=== PATIENT | female | born 1960 | race Caucasian/White ===

== ENCOUNTER 2018-01-20 15:14 | Observation (INO) | payer BC ==
[~2018-01-20] VITALS: Ht 172.7 cm; Wt 76.0 kg
[2018-01-20 15:15] VITALS: BP 158/74; PULSE 85; RESP 20; TEMP 98.2; O2SAT 100
[2018-01-20] MEDS ORDERED: VIBR100C PO (16:44)
[2018-01-20] MEDS ORDERED: HYDROmorphone HCL PF 2 MG/ML VIAL IV PUSH ONE (17:00)
--- NOTE | 2018-01-20 17:03 | PD ---
HPI Chief Complaint: Back/ Neck Pain or Injury Time Seen by Provider: 16:55 Travel History International Travel<30 days: No Contact w/Intl Traveler<30days: No Traveled to known affect area: No History of Present Illness HPI 57-year-old female here for evaluation of right lower back pain that radiates down her right leg. The pain started this morning. She went to see her primary care physician Dr. Simpson who prescribed her muscle relaxants. She then went to get a massage, and afterwards she states that she cannot dress herself. Pain is constant, severe, radiates down her right posterior leg, constant, worse with movements. No urinary or bowel incontinence or retention. No fevers. No known history of cancer. PFSH Past Medical History Medical History: Denies Significant Hx Tetanus Vaccination: < 5 Years ?: Not Past Surgical History Hysterectomy: Yes Other Surgery: Yes (lt kidney removed) Social History Alcohol Use: No Tobacco Use: No Substance Use: No Allergies-Medications (Allergen,Severity, Reaction): Coded Allergies: meperidine (Verified Allergy, Severe, Anaphylaxis, 01/20/18) morphine (Verified Allergy, Severe, Hives, 01/20/18) NSAIDS (Non-Steroidal Anti-Inflamma (Verified Adverse Reaction, Unknown, ) PER PCP, NO NSAIDS BECAUSE OF KIDNEY FUNCTION Uncoded Allergies: ivp dye (Allergy, Severe, Anaphylaxis, 01/20/18) steroids (Adverse Reaction, Severe, Confusion, 01/20/18) crazy Reported Meds & Prescriptions Reported Meds & Active Scripts Active Reported Vibramycin (Doxycycline Hyclate) 100 Mg Cap 100 Mg PO BID Review of Systems Except as stated in HPI: all other systems reviewed are Neg Physical Exam Narrative GENERAL: Well-developed, well-nourished, no apparent distress. SKIN: Focused skin assessment warm/dry. No rash. HEAD: Atraumatic. Normocephalic. EYES: Pupils equal and round. No scleral icterus. No injection or drainage. ENT: No nasal bleeding or discharge. Mucous membranes pink and moist. NECK: Trachea midline. No JVD. CARDIOVASCULAR: Regular rate and rhythm. No murmur appreciated. RESPIRATORY: No accessory muscle use. Clear to auscultation. Breath sounds equal bilaterally. GASTROINTESTINAL: Abdomen soft, non-tender, nondistended. MUSCULOSKELETAL: No obvious deformities. No clubbing. No cyanosis. No edema. Normal range of motion and muscle strength in bilateral lower extremities. No midline vertebral step-off or tenderness. NEUROLOGICAL: Awake and alert. No obvious cranial nerve deficits. Motor grossly within normal limits. Normal speech. No saddle anesthesia. Brisk patellar tendon reflexes bilaterally. Great toe extension present bilaterally. PSYCHIATRIC: Appropriate mood and affect; insight and judgment normal. Data Data Last Documented VS Vital Signs Date Time Temp Pulse Resp B/P (MAP) Pulse Ox O2 Delivery O2 Flow Rate FiO2 01/20/18 17:42 15 01/20/18 17:10 83 99 Room Air 01/20/18 15:15 98.2 Orders Orders Complete Blood Count With Diff (01/20/18 17:00) Comprehensive Metabolic Panel (01/20/18 17:00) Prothrombin Time / Inr (Pt) (01/20/18 17:00) Act Partial Throm Time (Ptt) (01/20/18 17:00) Urinalysis - C+S If Indicated (01/20/18 17:00) Iv Access Insert/Monitor (01/20/18 17:00) Ecg Monitoring (01/20/18 17:00) Oximetry (01/20/18 17:00) Sodium Chloride 0.9% Flush (Ns Flush) (01/20/18 17:00) Mri L Spine W/O Contrast (01/20/18 ) Hydromorphone Pf Inj (Dilaudid Pf Inj) (01/20/18 17:00) Ondansetron Inj (Zofran Inj) (01/20/18 18:30) Labs Laboratory Tests Test 01/20/18 17:07 White Blood Count 7.4 TH/MM3 Red Blood Count 3.79 MIL/MM3 Hemoglobin 13.1 GM/DL Hematocrit 36.9 % Mean Corpuscular Volume 97.4 FL Mean Corpuscular Hemoglobin 34.4 PG Mean Corpuscular Hemoglobin Concent 35.4 % Red Cell Distribution Width 12.8 % Platelet Count 205 TH/MM3 Mean Platelet Volume 7.9 FL Neutrophils (%) (Auto) 50.7 % Lymphocytes (%) (Auto) 39.1 % Monocytes (%) (Auto) 8.7 % Eosinophils (%) (Auto) 1.1 % Basophils (%) (Auto) 0.4 % Neutrophils # (Auto) 3.8 TH/MM3 Lymphocytes # (Auto) 2.9 TH/MM3 Monocytes # (Auto) 0.6 TH/MM3 Eosinophils # (Auto) 0.1 TH/MM3 Basophils # (Auto) 0.0 TH/MM3 CBC Comment DIFF FINAL Differential Comment Prothrombin Time 10.6 SEC Prothromb Time International Ratio 1.0 RATIO Activated Partial Thromboplast Time 23.7 SEC Blood Urea Nitrogen 17 MG/DL Creatinine 0.91 MG/DL Random Glucose 99 MG/DL Total Protein 7.6 GM/DL Albumin 4.0 GM/DL Calcium Level 8.7 MG/DL Alkaline Phosphatase 57 U/L Aspartate Amino Transf (AST/SGOT) 26 U/L Alanine Aminotransferase (ALT/SGPT) 21 U/L Total Bilirubin 0.8 MG/DL Sodium Level 138 MEQ/L Potassium Level 4.0 MEQ/L Chloride Level 106 MEQ/L Carbon Dioxide Level 24.2 MEQ/L Anion Gap 8 MEQ/L Estimat Glomerular Filtration Rate 63 ML/MIN MDM Medical Decision Making Medical Screen Exam Complete: Yes Emergency Medical Condition: Yes Differential Diagnosis Sciatica, cord compression most likely Narrative Course Vital signs reviewed. CBC is unremarkable. CMP is unremarkable. MRI L-spine: CONCLUSION: 1. Minimal degenerative spondylosis of the lumbar spine. No significant central canal or neural foraminal narrowing. 2. Small posterior annular tear at L3-4. This may be symptomatic in some patients. The patient and the patient's significant other were made aware of all findings. She did have some relief of pain with Dilaudid, however continues to have lower back pain. Given ongoing pain she'll be admitted for overnight observation. Case discussed with the patient's primary care physician Dr. Simpson who will admit the patient to his service. Diagnosis Primary Impression: Intractable low back pain Admitting Information Admitting Physician Requests: Observation Carlos Manuel Pierce MD Jan 20, 2018 17:03
[2018-01-20 17:10] VITALS: PULSE 83; RESP 16; O2SAT 99
[2018-01-20] MEDS: SODIUM CHLORIDE 0.9% FLUSH 10 ML FLUSH IV FLUSH PRN ×2 (17:12→18:27)
[2018-01-20 17:26] LABS: AUTOMATED NEUTROPHIL # 3.8 TH/MM3 (1.8-7.7); BASOPHIL % 0.4 % (0.0-2.0); EOSINOPHIL # 0.1 TH/MM3 (0-0.4); EOSINOPHIL % 1.1 % (0.0-4.0); HEMATOCRIT 36.9 % (35.0-46.0); HEMOGLOBIN 13.1 GM/DL (11.6-15.3); LYMPH % 39.1 % (9.0-44.0); LYMPHOCYTE # 2.9 TH/MM3 (1.0-4.8); MEAN CELL VOLUME 97.4 FL (80.0-100.0); MEAN CORPUSCULAR HEMOGLOBIN 34.4 PG (27.0-34.0); MEAN CORPUSCULAR HGB CONC 35.4 % (32.0-36.0); MEAN PLATELET VOLUME 7.9 FL (7.0-11.0); MONO % 8.7 % (0.0-8.0); MONOCYTE # 0.6 TH/MM3 (0-0.9); NEUT % 50.7 % (16.0-70.0); PLATELET COUNT 205 TH/MM3 (150-450); RED BLOOD COUNT 3.79 MIL/MM3 (4.00-5.30); RED CELL DISTRIBUTION WIDTH 12.8 % (11.6-17.2); WHITE BLOOD COUNT 7.4 TH/MM3 (4.0-11.0)
[2018-01-20 17:36] LABS: PROTHROMBIN TIME - PATIENT 10.6 SEC (9.8-11.6)
[2018-01-20 17:40] LABS: ALT (GPT) 21 U/L (10-53); AST (GOT) 26 U/L (15-37); BICARBONATE 24.2 MEQ/L (21.0-32.0); BLOOD UREA NITROGEN 17 MG/DL (7-18); CALCIUM 8.7 MG/DL (8.5-10.1); CHLORIDE 106 MEQ/L (98-107); CREATININE 0.91 MG/DL (0.50-1.00); GLOMERULAR FILTRATION RATE 63 ML/MIN (>89); GLUCOSE,RANDOM 99 MG/DL (74-106); SODIUM (NA) 138 MEQ/L (136-145)
[2018-01-20 17:41] LABS: ALKALINE PHOSPHATASE 57 U/L (45-117); TOTAL BILIRUBIN ADULT 0.8 MG/DL (0.2-1.0); TOTAL PROTEIN 7.6 GM/DL (6.4-8.2)
[2018-01-20] MEDS ORDERED: ONDANSETRON HCL 4 MG/2 ML VIAL IV PUSH ONE (18:30)
--- NOTE | 2018-01-20 19:19 | RADRPT ---
EXAM DATE/TIME: 01/20/2018 18:36 [facility] COMPARISON: No previous studies available for comparison. INDICATIONS : Pain. MEDICAL HISTORY : Renal insufficiency, chronic. SURGICAL HISTORY : Nephrectomy, left. Hysterectomy. ENCOUNTER: Initial ACUITY: 1 day PAIN SCORE: 5/10 LOCATION: [facility] TECHNIQUE: Multiplanar multisequence MRI of the lumbar spine was performed without contrast. FINDINGS: The most caudal appearing lumbar vertebra is numbered as L5. VERTEBRAE: Homogeneous signal. Normal alignment. CONUS: Normal level and configuration. T12-L1: The thecal sac has a normal diameter. No evidence of disc bulge or protrusion. The neural foramina are patent bilaterally. L1-L2: The thecal sac has a normal diameter. No evidence of disc bulge or protrusion. The neural foramina are patent bilaterally. L2-L3: Minimal disc bulge without significant central canal or neural foraminal stenosis. L3-L4: Minimal disc bulge with small probable posterior annular tear. No significant central canal or neural foraminal stenosis. L4-L5: Minimal disc bulge, eccentric to the left. Mild ligamentum flavum hypertrophy and facet arthropathy. No significant central canal stenosis. No significant neural foraminal stenosis. L5-S1: The thecal sac has a normal diameter. No evidence of disc bulge or protrusion. The neural foramina are patent bilaterally. CONCLUSION: 1. Minimal degenerative spondylosis of the lumbar spine. No significant central canal or neural noemi inal narrowing. 2. Small posterior annular tear at L3-4. This may be symptomatic in some patients. Parth Cordova MD on January 20, 2018 at 19:14 Board Certified Radiologist. This report was verified electronically.
[2018-01-20] MEDS ORDERED: oxyCODONE/ACETAMINOPHEN 10 MG/325 MG TAB PO PRN (20:15)
[2018-01-20] MEDS ORDERED: ONDANSETRON HCL 4 MG/2 ML VIAL IV PUSH PRN (20:15)
[2018-01-20] MEDS ORDERED: HYDROmorphone HCL PF 2 MG/ML VIAL IV PUSH PRN (20:15)
[2018-01-20] MEDS ORDERED: methylPREDNISolone SOD SUCC 40 MG/1 ML VIAL IV PUSH ONE (20:15)
[2018-01-20] MEDS: DOXYCYCLINE HYCLATE 100 MG CAP PO SCH (21:00)
[2018-01-20 21:40] VITALS: BP 114/68; PULSE 65; RESP 17; TEMP 98.4; O2SAT 96
[2018-01-20 23:41] VITALS: BP 109/64; PULSE 74; RESP 18; TEMP 98.2; O2SAT 96
[2018-01-21 04:34] VITALS: BP 118/76; PULSE 73; RESP 17; TEMP 98.3; O2SAT 95
[2018-01-21 08:00] VITALS: BP 101/58; PULSE 69; RESP 18; TEMP 96; O2SAT 95
[2018-01-21] MEDS: SODIUM CHLORIDE 0.9% FLUSH 10 ML FLUSH IV FLUSH PRN (09:43)
[2018-01-21] MEDS: DOXYCYCLINE HYCLATE 100 MG CAP PO SCH (09:43)
[2018-01-21] MEDS ORDERED: PRED10 PO (11:55)
[2018-01-21] MEDS ORDERED: OXYC1TAB36 PO (11:55)
[2018-01-21] MEDS ORDERED: PROM25TA10 PO (11:55)
[2018-01-21 12:00] VITALS: BP 104/57; PULSE 70; RESP 18; TEMP 96.1; O2SAT 96
[2018-01-21] MEDS ORDERED: PROMETHAZINE HCL 25 MG TAB PO PRN (12:00)
[2018-01-21] MEDS ORDERED: predniSONE 10 MG TAB PO SCH (12:00)
[2018-01-21 15:58] VITALS: BP 131/67; PULSE 82; RESP 18; TEMP 96.5; O2SAT 96
== END 2018-01-21 18:25 | disposition home or self-care (01) ==
LOC: NEPD 15:14 → NEDA 19:35 → NEPHCDU 21:03
PROVIDERS: ADMIT Family Medicine; ATTEND Family Medicine
DX: M54.5 Low back pain (principal); M79.661 Pain in right lower leg; Z90.710 Acquired absence of both cervix and uterus
CPT/HCPCS: 72148; 80053; 85025; 85610; 85730; 96374; 96375; 96376; 99285; G0378; J1170; J2405; J2920; J7512; Q0169